=== PATIENT | male | born 1960 | race American Indian/Alaskan Native ===

== ENCOUNTER 2017-10-06 09:35 | Outpatient (CLI) | payer OTHER ==
--- NOTE | 2017-10-06 10:37 | XRay Report ---
LUMBOSACRAL SPINE, 3 VIEWS: History: Pain, arthritis Findings: There is moderate multilevel degenerative disc disease and facet arthropathy. L5-S1 is the most affected level. No evidence for compression deformity or malalignment. No bone lesion. Impression: Lumbar spondylosis. No acute process.
--- NOTE | 2017-10-06 10:38 | XRay Report ---
BILATERAL KNEES, 2 VIEWS History: Pain, knee arthritis. Findings: There are moderate osteoarthritic changes in the medial medial compartment and patellofemoral space of the left knee. There are moderate to severe osteoarthritic changes throughout the 3 compartments of the right knee. Previous right ACL repair changes are suspected, correlate with history. Moderate bilateral joint effusions are noted. Impression: Degenerative changes as described, right greater than left.
== END 2017-10-06 09:36 | disposition home or self-care (01) ==
LOC: XRAY 09:35
PROVIDERS: ATTEND Internal Medicine
DX: M17.0 Bilateral primary osteoarthritis of knee (principal); M47.896 Other spondylosis, lumbar region; M51.36 Other intervertebral disc degeneration, lumbar region
CPT/HCPCS: 72100

== ENCOUNTER 2017-11-07 08:02 | Day surgery (SDC) | payer OTHER ==
[2017-11-07] MEDS ORDERED: WATER FOR IRRIG STERILE IR ONE (08:53)
[2017-11-07] MEDS ORDERED: WATER FOR IRRIG STERILE ONE (08:54)
[2017-11-07] MEDS ORDERED: NACL 0.9% 1000 ML 1,000 ML IV SCH (09:00)
--- NOTE | 2017-11-07 09:59 | Anesthesia Consultation ---
Anesthesia Consult and Med Hx Date of service: 11/07/17 - Airway Anesthetic Teeth Evaluation: Good ROM Head & Neck: Adequate Mental/Hyoid Distance: Adequate Mallampati Class: Class II Intubation Access Assessment: Probably Good - Pre-Operative Health Status ASA Pre-Surgery Classification: ASA2 Proposed Anesthetic Plan: MAC - Pulmonary Hx Smoking: Yes (former smoker) - Cardiovascular System Hx Hypertension: Yes
--- NOTE | 2017-11-07 10:00 | Anesthesia Day of Surgery ---
Anesthesia Day of Surgery - Day of Surgery Patient Examined: Yes Patient H&P Reviewed: Yes Patient is NPO: Yes
[2017-11-07] MEDS ORDERED: DIPRIVAN 10 MG/ML IV ONE ×2 (11:52)
--- NOTE | 2017-11-07 12:43 | Operative Report ---
Operative Report Operative Report: Date of procedure: 11/07/2017 Procedure: Colonoscopy with Multiple Polyp ablations and Hot Biopsy Polypectomies. Attending physician: Jose Maria Webber MD Life Skills Teacher: Jose Maria Webber MD Indication: Patient is a 57-year-old male who presents for screening colonoscopy. This colonoscopy serves to evaluate patient so that treatment may be directed based on the findings. Consent: Informed consent was obtained after advising the patient and family regarding nature of this procedure, its indications, potential benefits as well as possible complications including but not limited to bleeding perforation and adverse reaction to medication, infection as well as other cardiopulmonary complications. An informed written and verbal consent was then obtained after due opportunity was provided for questions and answers. Monitoring: Patient was monitored continuously with pulse oximetry and electrocardiographic recordings as well as blood pressure recordings. Vital signs remained stable throughout this procedure with no untoward events. Preoperative assessment: Patient was assessed immediately prior to this procedure for capacity to tolerate monitored anesthesia care and moderate sedation as well as general anesthesia. Patient's ASA classification is 2, Mallampati class is 2, Hyomental distance is 3. Instrument: [employer]n video colonoscope Medications: Propofol given intravenously in divided doses. For details please refer to anesthesia records. Description of procedure: Patient was placed in the left lateral decubitus position after achieving sedation, a digital rectal examination was performed following which the colonoscope was introduced into the anal verge and advanced to the cecum which was identified by the cecal valve, the appendiceal orifice, as well as by the cecal strap and direct transillumination. The colonoscope was subsequently withdrawn with careful inspection of all mucosal surfaces. Patient tolerated this procedure well and was subsequently taken to the recovery room. The following findings were noted. Findings: Patient had multiple diminutive flat polyps in the rectum measuring about 3-5 mm. About 10 of these polyps were removed by hot biopsy polypectomy. 6 of them were ablated. There were also a few diminutive polyps in the sigmoid colon which measured 3-4 mm. these were flat. The polyps were ablated completely. There were scattered diverticula in the sigmoid colon and also in the descending colon. There was a small defect on one of the polypectomy sites which was felt to significant. Therefore, a Hemoclip was applied over this site. The rest of the colon to the cecum was normal. On the retroflex view at the anal verge, patient had internal hemorrhoids. Patient also had hypertrophied anal papilla. Impression: Multiple diminutive rectal and sigmoid colon polyps status post hot biopsy polypectomy and the polyp ablation. Diverticula disease of the colon. Internal hemorrhoids. Plan: Follow pathology report. High-fiber diet. Repeat colonoscopy in 5 years.
--- NOTE | 2017-11-07 12:44 | Discharge Summary ---
Short Stay Discharge Plan Activity: advance as tolerated Weight Bearing Status: Weight Bear as Tolerated Diet: regular Additional Instructions: Post Sedation D/C Instructions When you return home you may resume your regular diet unless otherwise directed. - Go directly home from the hospital and rest quietly. You may resume normal activities tomorrow. - Do NOT drive, return to work, operate any machinery or make any important personal or business decisions today. -Do NOT drink any alcohol or take nerve or sleeping drugs. They add to the effects of the medicine still present in your body. Follow up with: TIMI CAI MD [Primary Care Provider] - 7 Days
[2017-11-07 12:56] VITALS: BP 115/79
--- NOTE | 2017-11-07 14:39 | Post Anesthesia Evaluation ---
- Post Anesthesia Evaluation Patient Participated: Yes Airway Patent: Yes Stable Respiratory Function: Yes Nausea/Vomiting: No Temp > 96.8F: Yes Pain Manageable: Yes Adequeate Hydration: Yes Anesthesia Complications: No
== END 2017-11-07 08:03 | disposition home or self-care (01) ==
LOC: GIO 08:02
PROVIDERS: ATTEND Internal Medicine Gastroenterology
DX: Z12.11 Encounter for screening for malignant neoplasm of colon (principal); D3A.026 Benign carcinoid tumor of the rectum; I10 Essential (primary) hypertension; K63.5 Polyp of colon; Z87.891 Personal history of nicotine dependence
CPT/HCPCS: 45384; 45388; 88305; 88341; 88342; J2704; J7030

== ENCOUNTER 2018-06-05 10:10 | Day surgery (SDC) | payer OTHER ==
[2018-06-05] MEDS ORDERED: NACL 0.9% 1000 ML 1,000 ML IV SCH (11:00)
[2018-06-05] MEDS ORDERED: DIPRIVAN 10 MG/ML IV ONE (15:20)
--- NOTE | 2018-06-05 15:40 | Anesthesia Day of Surgery ---
Anesthesia Day of Surgery - Day of Surgery Patient Examined: Yes Patient H&P Reviewed: Yes Patient is NPO: Yes
--- NOTE | 2018-06-05 15:40 | Anesthesia Consultation ---
Anesthesia Consult and Med Hx Date of service: 06/05/18 - Airway Anesthetic Teeth Evaluation: Good ROM Head & Neck: Adequate Mental/Hyoid Distance: Adequate Mallampati Class: Class II Intubation Access Assessment: Probably Good - Pulmonary Exam CTA: Yes - Cardiac Exam Cardiac Exam: RRR - Pre-Operative Health Status ASA Pre-Surgery Classification: ASA2 Proposed Anesthetic Plan: MAC - Pulmonary Hx Smoking: Yes (former smoker) - Other Systems Hx Cancer: Yes (CARCINOID POLYPS)
--- NOTE | 2018-06-05 15:42 | Operative Report ---
Operative Report Operative Report: Date of procedure: 03/20/2018 Procedure: Flexible Sigmoidoscopy. Attending physician: Jose Maria Webber MD Desk Editor: Jose Maria Webber MD Indication: Patient is a 57-year-old male who presents for flexible sigmoidoscopy for surveillance for neuroendocrine tumor. A colonoscopy serves to evaluate patient so that treatment may be directed based on the findings. Consent: Informed consent was obtained after advising the patient and family regarding nature of this procedure, its indications, potential benefits as well as possible complications including but not limited to bleeding perforation and adverse reaction to medication, infection as well as other cardiopulmonary complications. An informed written and verbal consent was then obtained after due opportunity was provided for questions and answers. Monitoring: Patient was monitored continuously with pulse oximetry and electrocardiographic recordings as well as blood pressure recordings. Vital signs remained stable throughout this procedure with no untoward events. Preoperative assessment: Patient was assessed immediately prior to this procedure for capacity to tolerate monitored anesthesia care and moderate sedation as well as general anesthesia. Patient's ASA classification is 2, Mallampati class is 2, Hyomental distance is 3. Instrument: [employer] video colonoscope Medications: Propofol given intravenously in divided doses. For details please refer to anesthesia records. Description of procedure: Patient was placed in the left lateral decubitus position after achieving sedation, a digital rectal examination was performed following which the endoscope was introduced into the anal verge and advanced to the descending colon. It was subsequently withdrawn with careful inspection of all mucosal surfaces. Patient tolerated this procedure well and was subsequently taken to the recovery room. The following findings were noted. Findings: The entirety of the examined segments of the colon was normal. On the retroflex view at the anal verge, patient had internal hemorrhoids and hypertrophied anal papilla. Previous polyectomy site with scaring was noted. Impression: Normal flexible sigmoidoscopy. Hypertrophied anal papilla Internal hemorrhoids. Plan: High-fiber diet. Prn stool softeners. Repeat colonoscopy in 5 years.
--- NOTE | 2018-06-05 15:42 | Discharge Summary ---
Short Stay Discharge Plan Activity: advance as tolerated Weight Bearing Status: Weight Bear as Tolerated Diet: regular Follow up with: TIMI CAI MD [Primary Care Provider] - 7 Days
[2018-06-05 16:22] VITALS: BP 140/76
== END 2018-06-05 10:11 | disposition home or self-care (01) ==
LOC: GIO 10:10
PROVIDERS: ATTEND Internal Medicine Gastroenterology
DX: D3A.8 Other benign neuroendocrine tumors (principal); K62.89 Other specified diseases of anus and rectum; K64.8 Other hemorrhoids; M19.90 Unspecified osteoarthritis, unspecified site; Z87.442 Personal history of urinary calculi; Z87.891 Personal history of nicotine dependence; Z98.890 Other specified postprocedural states
CPT/HCPCS: 45330; J2704; J7030